=== PATIENT | male | born 1990 | race Caucasian/White ===

== ENCOUNTER 2017-08-09 12:08 | Emergency (ER) | payer OTHER ==
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
[2017-08-09 15:15] VITALS: BP 136/78; PULSE 85; RESP 16; TEMP 98.4; O2SAT 93
== END 2017-08-09 15:15 | disposition home or self-care (01) ==
DX: S00.511A Abrasion of lip, initial encounter (principal); S60.222A Contusion of left hand, initial encounter; V49.69XA Unspecified car occupant injured in collision with other motor vehicles in traffic accident, initial encounter; Y92.410 Unspecified street and highway as the place of occurrence of the external cause; Y99.8 Other external cause status